=== PATIENT | male | born 1950 | race Caucasian/White ===

== ENCOUNTER → 2017-06-12 | Outpatient (CLI) | payer MEDICARE | END | disposition home or self-care (01) | LOC: LABPAT 11:12 | PROVIDERS: ATTEND Orthopaedic Surgery | DX: Z01.812 Encounter for preprocedural laboratory examination (principal); M16.12 Unilateral primary osteoarthritis, left hip | CPT/HCPCS: 87070 ==

== ENCOUNTER → 2017-06-16 | Outpatient (CLI) | payer MEDICARE ==
[2017-06-16 10:26] LABS: Basophils # (A) 0.1 k/uL (0-0.2); Basophils % (A) 1 %; Eosinophils # (A) 0.3 k/uL (0-0.7); Eosinophils % (A) 4 %; HCT 48.5 % (39.0-53.0); HGB 15.7 gm/dL (13.0-17.5); Lymphocytes # (A) 2.1 k/uL (1.0-4.8); Lymphocytes % (A) 26 %; MCHC 32.4 g/dL (31.0-37.0); MCV 89.5 fL (80.0-100.0); Mean Platelet Volume 7.9; Monocytes # (A) 0.5 k/uL (0-1.0); Monocytes % (A) 6 %; Neutrophils # (A) 4.8 k/uL (1.3-7.7); Neutrophils % (A) 61 %; Platelet Count 262 k/uL (150-450); RBC 5.42 m/uL (4.30-5.90); RDW 13.4 % (11.5-15.5); WBC 7.9 k/uL (3.8-10.6)
[2017-06-16 10:28] LABS: Partial Thromboplastin Time 23.6 sec (22.0-30.0); Prothrombin Time 10.2 sec (9.0-12.0)
[2017-06-16 11:10] LABS: Potassium 3.9 mmol/L (3.5-5.1)
== END | disposition home or self-care (01) ==
LOC: LABPAT 09:40
PROVIDERS: ATTEND Orthopaedic Surgery
DX: Z01.812 Encounter for preprocedural laboratory examination (principal); M16.12 Unilateral primary osteoarthritis, left hip; Z79.01 Long term (current) use of anticoagulants; Z51.81 Encounter for therapeutic drug level monitoring
CPT/HCPCS: 36415; 80051; 85025; 85610; 85730

== ENCOUNTER 2017-06-23 05:37 | Inpatient (IN) | payer MEDICARE, OTHER ==
[2017-06-13 14:23] VITALS: BMI 24.8
--- NOTE | 2017-06-22 09:36 | HP ---
HISTORY AND PHYSICAL HISTORY: Randy Higuera is a 66-year-old patient seen with symptomatic left hip osteoarthritis. After treatment options were discussed, he elected to proceed with direct anterior left total hip arthroplasty. Consent regarding the procedure was obtained. Medical clearance was provided by Dr. Randy Deng. PAST MEDICAL HISTORY: Hypertension, hypothyroidism, hyperlipidemia. PAST SURGICAL HISTORY: Noncontributory. MEDICATIONS: Amlodipine, levothyroxine, pravastatin. ALLERGIES: None reported. SOCIAL HISTORY: Patient denies tobacco use. PHYSICAL EXAMINATION: Left hip, there is limited range of motion with severe pain. Diffuse tenderness about the hip girdle. Positive hip impingement sign. Straight leg raise is negative. Left lower extremity approximately one-half inch shorter than the right. Distal neurovascular exam is intact. RADIOGRAPHS: Radiographs of the left hip reveal severe osteoarthritic changes. IMPRESSION: 1. Left hip osteoarthritis. 2. Hypothyroidism. 3. Hyperlipidemia. 4. Hypertension. PLAN: Direct anterior left total hip arthroplasty. MMODL / IJN: [id number] /
[~2017-06-23 05:37] MED LIST: ACETAMINOPHEN TAB 500 MG TAB PO ONE; DEXAMETHASONE SOD PHOSPHATE 10 MG/ML 1 ML VIAL IV ONE; MELOXICAM 7.5 MG TAB PO ONE; MIDAZOLAM 2 MG/2 ML VIAL IV PRN; ONDANSETRON 4 MG/2 ML VIAL IVP ONE; TRANEXAMIC ACID 1,000 MG in SODIUM CHLORIDE 0.9% 50 ML IVPB ONE; ceFAZolin IN SWFI 2 GM/20 ML SYRINGE IVP ONE; fentaNYL (PF) 50 MCG/ML 2 ML AMP IV PRN
[2017-06-23] MEDS ORDERED: LIDOCAINE 1% 20 ML VIAL (10MG/ML) FOR IV START INTRADERMA ONE (06:44)
[2017-06-23] MEDS: LACTATED RINGERS 1,000 ML IV SCH ×3 (07:05→21:05)
[2017-06-23] MEDS ORDERED: ROPIVACAINE 246.25 MG, EPINEPHrine 0.5 MG, KETOROLAC 30 MG, cloNIDine HCL/PF 80 MCG, WA... MISCELLANE ONE ×5 (07:26)
[2017-06-23] MEDS ORDERED: diphenhydrAMINE 50 MG/ML 1 ML VIAL ONE (07:27)
[2017-06-23] MEDS ORDERED: SODIUM CHLORIDE 0.9% 100 ML BAG ONE (07:27)
[2017-06-23] MEDS ORDERED: fentaNYL (PF) 50 MCG/ML 2 ML AMP ONE (07:27)
[2017-06-23] MEDS ORDERED: MIDAZOLAM 2 MG/2 ML VIAL ONE (07:27)
[2017-06-23] MEDS ORDERED: LIDOCAINE 1% INJ 10MG/ML (20 ML MDV) ONE (07:27)
[2017-06-23] MEDS ORDERED: TRANEXAMIC ACID 1,000 MG/10 ML VIAL ONE (07:27)
[2017-06-23] MEDS ORDERED: PROPOFOL 10 MG/ML 20 ML VIAL IV ONE (07:27)
[2017-06-23] MEDS ORDERED: ceFAZolin 3,000 MG in SODIUM CHLORIDE 0.9% IRRIGATIO 3,000 ML IRRIGATION ONE (08:06)
[2017-06-23] MEDS ORDERED: LACTATED RINGERS 1,000 ML IV ONE (09:28)
[2017-06-23] MEDS ORDERED: MORPHINE SULFATE/PF 10MG/10ML VL IVP PRN ×3 (09:38)
[2017-06-23] MEDS ORDERED: HYDROcodone/APAP 7.5-325MG 1 EACH TAB PO PRN ×2 (09:38)
[2017-06-23] MEDS ORDERED: ONDANSETRON 4 MG/2 ML VIAL IVP PRN (09:38)
[2017-06-23] MEDS ORDERED: NALOXONE 0.4 MG/ML 1 ML VIAL IV PRN (09:38)
[2017-06-23] MEDS ORDERED: hydrOXYzine PAMOATE 25 MG CAP PO PRN (09:38)
--- NOTE | 2017-06-23 09:38 | P.OP ---
Date of Procedure: 06/23/17 Preoperative Diagnosis: Left hip osteoarthritis Postoperative Diagnosis: Left hip osteoarthritis Procedure(s) Performed: Direct anterior left total hip arthroplasty Implants: 1. Depuy Corail KA size 15 standard collar. The femoral stem 2. Depuy pinnacle 62 mm multi hole press-fit acetabular shell 3. Depuy pinnacle polyethylene acetabular liner neutral 36 mm ID 62 mm OD 4. Biolox delta ceramic femoral head +5 36 mm Anesthesia: local, spinal Surgeon: Roberto Alanis Automotive Engineering Technician #1: Carlos Will Estimated Blood Loss (ml): 200 Pathology: other (Femoral head) Condition: stable Disposition: PACU Indications for Procedure: 66-year-old patient seen with symptomatic left hip osteoarthritis. After treatment options were discussed, he elected to proceed with total hip arthroplasty. Operative Findings: See description of procedure Description of Procedure: The patient was taken to the operative suite. Patient underwent a spinal anesthetic by the department of anesthesia. Patient was then transferred to the [place] table. Patient was given preoperative IV antibiotics and TXA. Both lower extremities were placed in standard leg spars. The hip was then prepped and draped in the normal sterile orthopedic fashion. A standard anterior incision was made beginning 3 cm lateral and 1 cm distal to the ASIS extending 10 cm. Dissection was then carried down through the subcutaneous soft tissues down to the fascia overlying the tensor fascia guero. An incision was now made through the fascia. Careful dissection was taken down exposing the tensor fascia geuro muscle. A Cobra retractor was now placed along the medial femoral neck and a second one along the lateral femoral neck. The venous circumflex vessels were now identified, cauterized and clipped. We identified the anterior hip capsule. An incision was made through the hip capsule along the lateral border. Tag sutures were then placed along the anterior capsule and lateral capsule. We then performed a capsulotomy. Retractors were now placed around the femoral neck itself. A Cobra retractor was now placed along the anterior acetabulum. Good exposure was now noted of the femoral head/neck complex. Residual labrum was debrided out. We placed the extremity into 3 turns of fine traction. We were then able to introduce a skid in between the femoral head and acetabulum. A placed a awl into the femoral head. We took 2 turns of traction off the extremity. Rotation was now released. The femoral head was then dislocated without difficulty. Additional releasing was performed of the capsule. The head was then reduced. All traction was released. A femoral neck cut was now made with a sagittal saw. It was completed with an osteotome at the lateral neck area. The femoral head was now removed without difficulty. It was advanced arthritis noted of both the femoral head and acetabulum. Obvious deficiency along the anterior portion of the acetabulum. The extremity was now rotated to 60 of external rotation. It was locked in position. Residual labrum was now debrided out. Serial reaming was performed of the acetabulum. Once we reached the appropriate size and a trial was position and fit nicely. The appropriate size was now chosen opened and made available. It was introduced into the acetabulum without difficulty. I noted that the cup was not stable and would not stick with the anterior deficiency. I now reamed with a 60 reamer. I chose a new 62 mm multi hole press-fit shell introduced into the acetabulum. The C-arm/fluoroscopy was now brought into the operative field. We made sure we had a true AP pelvic view. We now under direct C-arm/fluoroscopy introduced into the acetabular component with appropriate version and inclination. The C-arm was pulled back. An appropriate liner was introduced and clicked into position. It was felt to be stable. I did put 2 screws to help make sure we had a stable fixation with this anterior deficiency. At this point retractors were removed. The extremity was now placed into 120 external rotation with no traction. The leg was now dropped to the ground and adducted. Appropriate retractors were now positioned along the proximal femur. We also placed our femoral look into position. Additional capsular releasing was performed to gain access to the proximal femur. We now used a box osteotome. A canal finder was now utilized. Serial broaching was now performed until we reached the appropriate size with good overall rotational stability. Appropriate calcar planing was performed. A trial head/neck was placed into position. The hip was now reduced. The C-arm /fluoroscopy was brought back into the operative field. A spot film was obtained of the nonoperative hip. A spot film was obtained of the trial components. Overlays were performed, we noted good overall alignment and positioning for determining leg length. The C-arm/fluoroscopy was pulled back. Retractors were repositioned and the hip was dislocated. The leg was again taken down to the ground and adducted. Appropriate retractors were repositioned as well as the femoral hook. All trial components were removed. The femoral implant was opened along with the femoral head. The femoral implant was introduced with good purchase and fixation noted. The femoral head was introduced with good positioning and fixation noted. Retractors were now removed. The hip was now reduced. There appeared be good positioning of the hip. Was confirmed under fluoroscopy and spot films were obtained to document that. A second gram of TXA was given. Wound irrigated with pulse lavage mechanical irrigation. The soft tissues were infiltrated local analgesic. Bipolar cautery had been utilized intermittently through the procedure for hemostasis. The wound was irrigated copiously with pulse lavage mechanical irrigation. The fascia was repaired with Vicryl suture. The subcutaneous soft tissues were repaired in layers with Vicryl suture. The skin was approximated with pernio/Dermabond. Sterile dressings were applied. Patient was then awakened, transferred to a bed and taken to recovery in stable condition. Valentin MIX assisted with the procedure.
--- NOTE | 2017-06-23 10:06 | FL ---
Fluoroscopy HISTORY: Anterior hip replacement 37 seconds fluoroscopy time supplied to the referring clinician. 1 intraoperative C-arm image docume nts the procedure. See dictated report from orthopedic surgery.
--- NOTE | 2017-06-23 10:07 | XR ---
Limited left hip HISTORY: Hip replacement Intraoperative C-arm image documents the procedure
[2017-06-23] MEDS: traMADol 50 MG TAB PO SCH ×3 (13:01→21:04)
[2017-06-23] MEDS: ceFAZolin IN SWFI 2 GM/20 ML SYRINGE IVP SCH ×2 (15:29→23:13)
[2017-06-23] MEDS ORDERED: PRAVASTATIN SODIUM 40 MG TAB PO SCH (21:00)
[2017-06-23] MEDS ORDERED: SENNOSIDES-DOCUSATE SODIUM 1 EACH TAB PO SCH (21:00)
[2017-06-24] MEDS ORDERED: LEVOTHYROXINE 50 MCG TAB PO SCH (06:30)
[2017-06-24] MEDS: LACTATED RINGERS 1,000 ML IV SCH ×2 (06:50→09:14)
[2017-06-24 07:57] VITALS: PULSE 71; RESP 16
[2017-06-24 08:00] LABS: Basophils % (A) 0 %; Eosinophils # (A) 0.1 k/uL (0-0.7); Eosinophils % (A) 0 %; HCT 36.4 % (39.0-53.0); Lymphocytes # (A) 1.5 k/uL (1.0-4.8); Lymphocytes % (A) 10 %; MCH 30.3 pg (25.0-35.0); MCHC 34.5 g/dL (31.0-37.0); MCV 87.8 fL (80.0-100.0); Mean Platelet Volume 7.6; Monocytes # (A) 0.9 k/uL (0-1.0); Monocytes % (A) 6 %; Neutrophils # (A) 12.1 k/uL (1.3-7.7); Neutrophils % (A) 82 %; Platelet Count 238 k/uL (150-450); RBC 4.15 m/uL (4.30-5.90); RDW 13.2 % (11.5-15.5); WBC 14.8 k/uL (3.8-10.6)
[2017-06-24 08:08] LABS: HGB 12.6 gm/dL (13.0-17.5)
[2017-06-24] MEDS: traMADol 50 MG TAB PO SCH ×2 (08:42→12:10)
[2017-06-24] MEDS ORDERED: MELOXICAM 7.5 MG TAB PO SCH (09:00)
[2017-06-24] MEDS ORDERED: ENOXAPARIN 40 MG/0.4 ML SYRINGE SQ SCH (09:00)
[2017-06-24] MEDS ORDERED: FAMOTIDINE 20 MG TAB PO SCH (09:00)
--- NOTE | 2017-06-24 10:27 | P.CONS ---
History of Present Illness - Reason for Consult Consult date: 06/24/17 Medical management - Chief Complaint s/p left total hip arthroplasty - History of Present Illness 66-year-old male who underwent elective left total hip arthroplasty with Dr. Alanis on 06/23/2017. The patient is a history of osteoarthritis, hypertension, hyperlipidemia, and hypothyroidism. Dr. Deng was consulted for medical management. The patient was seen and examined at the bedside. Patient denies shortness of breath or coughing. Patient states his pain is tolerable at this time. Denies chest pain or pressure. Patient is tolerating a regular diet without nausea or vomiting. Vital signs have remained stable. Patient is afebrile. Patient denies any concerns or complaints at this time. Review of Systems GENERAL: Patient denies fever. Denies chills. EYES: Denies blurred vision. Denies vision changes. Denies eye pain. EARS, NOSE, MOUTH, & THROAT: Denies headache. Denies sore throat. Denies ear pain. RESPIRATORY: Denies cough. Denies shortness of breath. Denies sputum production. Denies hemoptysis. CARDIOVASCULAR: Denies chest pain or pressure. Denies palpitations. Denies arrhythmias. GASTROINTESTINAL: Denies abdominal pain. Denies diarrhea. Denies constipation. Denies nausea. Denies vomiting. Denies heartburn. Denies blood in the stool. GENITOURINARY: Denies urinary frequency. Denies burning. Denies dysuria. Denies cloudy urine. Denies blood in the urine. MUSCULOSKELETAL: Positive for left hip pain secondary to osteoarthritis. Positive for mild surgical pain this morning. INTEGUMENTARY: Denies pruitis. Denies rash. PSYCHIATRIC: Denies suicidal or homicial ideations. ENDOCRINE: Denies weight change. Denies polydipsia. Denies polyuria. HEMATOLOGIC: Denies bleeding disorders. Past Medical History Past Medical History: Hearing Disorder / Deafness, Hyperlipidemia, Hypertension , Thyroid Disorder Additional Past Medical History / Comment(s): [place], ringing in ears. History of Any Multi-Drug Resistant Organisms: None Reported Past Surgical History: Hernia Repair Additional Past Surgical History / Comment(s): Colonosopy Past Anesthesia/Blood Transfusion Reactions: No Reported Reaction Past Psychological History: No Psychological Hx Reported Smoking Status: Former smoker Past Alcohol Use History: Rare Additional Past Alcohol Use History / Comment(s): Smoked from [id number]. Past Drug Use History: None Reported - Past Family History Father Additional Family Medical History / Comment(s): Liver disorder Medications and Allergies Home Medications Medication Instructions Recorded Confirmed Type Garlic 1 tab PO DAILY 06/13/17 06/23/17 History Levothyroxine Sodium [Synthroid] 50 mcg PO QAM 06/13/17 06/23/17 History [place]-3 Fatty Acids [[place]-3] 1,000 mg PO DAILY 06/13/17 06/23/17 History Pravastatin Sodium 40 mg PO HS 06/13/17 06/23/17 History amLODIPine [Norvasc] 5 mg PO DAILY@1200 06/13/17 06/23/17 History Allergies Allergy/AdvReac Type Severity Reaction Status Date / Time No Known Allergies Allergy Verified 06/23/17 11:15 Physical Exam Vitals: Vital Signs Temp Pulse Pulse Pulse Resp BP Pulse Ox 06/24/17 07:00 98.2 F 71 16 121/67 96 06/24/17 01:06 97.9 F 65 17 106/62 96 06/23/17 20:00 97.7 F 73 18 106/55 96 06/23/17 15:00 97.7 F 71 16 111/58 96 06/23/17 12:45 62 125/66 95 06/23/17 12:30 60 122/68 90 L 06/23/17 12:15 57 L 126/73 94 L 06/23/17 12:00 60 121/74 94 L 06/23/17 11:45 56 L 127/70 90 L 06/23/17 11:30 55 L 126/73 94 L 06/23/17 11:15 56 L 121/74 94 L 06/23/17 11:00 56 L 122/70 90 L 06/23/17 10:45 98.1 F 58 L 16 120/71 95 06/23/17 10:31 47 L 18 130/62 96 Intake and Output 06/23/17 06/24/17 06/24/17 22:59 06:59 14:59 Intake Total 280 990 Output Total 1000 Balance -720 990 Intake: IV 640 Lactated Ringers 1,000 ml 640 @ 80 mls/hr IV .[id number] [facility] Rx#:[id number] Intake, IV Titration 280 Amount Lactated Ringers 1,000 ml 280 @ 80 mls/hr IV .[id number] [facility] Rx#:[id number] Oral 350 Output: Urine 1000 Other: Voiding Method Urinal Toilet # Voids 1 2 GENERAL: This is a 66-year-old male in no apparent distress at the time of examination. Pleasant and cooperative. HEENT: Head is atraumatic, normocephalic. Pupils are equal, round, and reactive to light. Sclerae anicteric. Conjunctivae are clear. Mucus membranes of the mouth are moist. Neck is supple. RESPIRATORY: Clear to ausculation. No wheezes, rales, or rhonchi. No use of accessory muscles. Patient maintaining oxygen saturation greater than 92%. No chest wall tenderness is noted on palpation or with deep breathing. CARDIOVASCULAR: Regular rate and rhythm. S1 and S2 noted. No systolic or diastolic murmur auscultated. No JVD noted. No S3 or S4 noted. GASTROINTESTINAL: No distention noted. Abdomen soft and round. Normal active bowel sounds auscultated x 4 quadrants. No pain or tenderness noted upon palpation. INTEGUMENTARY: Left hip surgical site clean dry and intact. No drainage noted. No cyanosis. No jaundice. No rashes noted. No cellulitis noted. EXTREMITIES: 2+ peripheral pulses. No evidence of peripheral edema. No calf tenderness noted. NEUROLOGIC: Cranial nerves II-XII intact. PSYCHIATRIC: Awake, alert, and oriented X 3. Appropriate affect. Intact judgement and insight. Results CBC & Chem 7: 06/24/17 06:25 Labs: Abnormal Lab Results - Last 24 Hours (Table) 06/24/17 Range/Units 06:25 WBC 14.8 H (3.8-10.6) k/uL RBC 4.15 L (4.30-5.90) m/uL Hgb 12.6 L D (13.0-17.5) gm/dL Hct 36.4 L (39.0-53.0) % Neutrophils # 12.1 H (1.3-7.7) k/uL Assessment and Plan Plan: ASSESSMENT: Osteoarthritis, s/p left total hip arthroplasty, POD #1 Essential hypertension Hyperlipidemia Hypothyroidism Nicotine dependence, in remission, patient is a former cigarette smoker and quit smoking in 1978 PLAN: Continue postoperative care per Dr. Alanis Activity as tolerated Pain control Incentive spirometer 10 times an hour while awake PT/OT Home meds as appropriate Monitor labs GI/DVT prophylaxis Monitor vital signs and address as appropriate Further recommendations pending patient's course Patient is cleared for discharge from medical standpoint per Dr. Deng when cleared by admitting physician Nurse practitioner note has been reviewed by physician. Signing provider agrees with the documented findings, assessment, and plan of care.
[2017-06-24] MEDS ORDERED: HYDROmorphone 2 MG TAB PO PRN ×3 (11:20→11:22)
--- NOTE | 2017-06-24 11:32 | P.PN ---
Subjective Progress Note Date: 06/24/17 Principal diagnosis: Status post left total hip arthroplasty Patient seen today resting in his hospital bed, he appears comfortable. He's ambulate well with therapy. He is urinating on his own. He denies any headaches, lightheadedness, chest pain or shortness of breath. Objective - Vital Signs Vital signs: Vital Signs Temp 98.2 F 06/24/17 07:00 Pulse 71 06/24/17 07:00 Resp 16 06/24/17 07:00 BP 121/67 06/24/17 07:00 Pulse Ox 96 06/24/17 07:00 Intake & Output 06/23/17 06/24/17 06/24/17 18:59 06:59 18:59 Intake Total 1701 1270 Output Total 1200 Balance 501 1270 Weight 80.739 kg Intake: IV 1701 640 Lactated Ringers 1,000 ml 400 640 @ 80 mls/hr IV .[id number] [facility] Rx#:[id number] Intake, IV Titration 280 Amount Lactated Ringers 1,000 ml 280 @ 80 mls/hr IV .[id number] [facility] Rx#:[id number] Oral 350 Output: Urine 1000 Estimated Blood Loss 200 Other: Voiding Method Urinal Toilet # Voids 1 2 - Exam Left lower extremity: Incision is clean, dry, and intact. The prineo tape is in good condition. There is minimal soft tissue swelling and ecchymosis surrounding the medial and lateral aspects of the incision. Calf is soft, no tenderness with palpation. Plantar flexion, dorsiflexion, EHL, FHL are intact. Sensory exam to light touch throughout the extremity is intact, dorsal pedis pulses 2+. - Labs CBC & Chem 7: 06/24/17 06:25 Labs: Abnormal Lab Results - Last 24 Hours (Table) 06/24/17 Range/Units 06:25 WBC 14.8 H (3.8-10.6) k/uL RBC 4.15 L (4.30-5.90) m/uL Hgb 12.6 L D (13.0-17.5) gm/dL Hct 36.4 L (39.0-53.0) % Neutrophils # 12.1 H (1.3-7.7) k/uL Assessment and Plan Plan: Assessment: 1. Postop day #1 status post left total hip arthroplasty Plan: 1. Pain control, we'll discharge home on oral medication 2. GI and DVT prophylaxis, we'll discharge home on aspirin 325 mg twice a day 3. Wound care instructions discussed 4. Home therapy and nursing after discharge 5. Medical recommendations 6. Discharge planning: Patient will be discharged home today Time with Patient: Less than 30
--- NOTE | 2017-06-24 11:34 | P.DS ---
Providers Date of admission: 06/23/17 05:37 Expected date of discharge: 06/24/17 Attending physician: Roberto Alanis Consults: 06/23/17 09:38 Consult Physician Routine Consulting Provider: Randy Deng Reason/Comments: Medical management Do you want consulting provider notified?: Yes Primary care physician: Randy Deng [facility] Course: Date of admission: 06/23/2017 Date of discharge: 06/24/2017 Admission diagnosis: Status post left total hip arthroplasty Discharge diagnosis: Same Attending physician: Dr. Alanis Surgical procedures: Left total hip arthroplasty Brief history: Patient is a 66-year-old male with a history of progressive primary left hip osteoarthritis. At this point patient has failed conservative treatment measures and has opted to proceed with a elective left total hip arthroplasty. Hospital course: Details of patient's surgery can be found in operative report. Patient tolerated the procedure well and was subsequently transported to orthopedic floor. Patient's orthopeidc and medical care was provided daily. Patient had daily laboratory tests performed for evaluation of overall blood counts. Patient had daily physical therapy to include strengthening range of motion as well as education with walker ambulation. nPatient was treated with Lovenox for their postoperative DVT prophylaxis during their inpatient stay. Patient was noted to have a relatively uneventful postoperative course. Patient reported satisfactory pain control with oral pain medications by postoperative day 0. Patient showed satisfactory progress with physical therapy. Patient moved steadily through the program and had no difficulty meeting the goals by postoperative day 1. Given patient's otherwise satisfactory course and having met physical therapy goals, plan is to discharge patient home on postoperative day 1. Discharge condition/disposition: Patient will be discharged home in stable condition. Discharge medications: Instructions are given on resumption of patient's normal daily medications per primary care recommendation, in addition patient will be prescribed [place] 5 mg/325 mg, tramadol 50 mg, Colace 100 mg, Pepcid 20 mg, aspirin 325 mg. Discharge instructions: 1. Wound care and infection precautions, keep incision dry and covered while showering, no lotions, creams, moisturizers. No soaking, tubs, pools, hottubs. Do not scrub over the incision. 2. Weight-bear as tolerated with walker / cane until follow-up. 3. Ice and elevate when necessary. Do not exceed 20 minutes per hour with ice pack. 4. Utilize compression sleeve until seen at first follow up appointment. 5. Visiting nursing care. 6. Home physical therapy. 7. Pain meds and anticoagulants per prescription. 8. Pain medication has potential to cause constipation. Increase oral fluid and fiber intake. Contact primary care provider if you have not had a bowel movement within 48 hours after discharge 9. No anti-inflammatory medication until discussed at first post operative visit, this including Motrin, Aleve, Mobic, Diclofenac. 10. Follow up in office at 2 weeks postop with Valentin Will PA-C 11. Follow up with your primary care doctor 7-10 days after discharge. 12. Contact [facility] with any questions, . Procedures: Left total hip arthroplasty Patient Condition at Discharge: Good Plan - Discharge Summary Discharge Rx Participant: No New Discharge Prescriptions: New Aspirin 325 mg PO BID #60 tab Docusate [Colace] 100 mg PO DAILY #30 capsule Famotidine [Pepcid] 20 mg PO DAILY #30 tablet Hydrocodone/Acetaminophen [[place] 5-325] 1 each PO Q6HR PRN #30 tab PRN Reason: Pain traMADol HCl [Ultram] 50 mg PO Q6H PRN #30 tab PRN Reason: Pain No Action amLODIPine [Norvasc] 5 mg PO DAILY@1200 Pravastatin Sodium 40 mg PO HS Levothyroxine Sodium [Synthroid] 50 mcg PO QAM [place]-3 Fatty Acids [[place]-3] 1,000 mg PO DAILY Garlic 1 tab PO DAILY Discharge Medication List Garlic 1 tab PO DAILY 06/13/17 [History] Levothyroxine Sodium [Synthroid] 50 mcg PO QAM 06/13/17 [History] [place]-3 Fatty Acids [[place]-3] 1,000 mg PO DAILY 06/13/17 [History] Pravastatin Sodium 40 mg PO HS 06/13/17 [History] amLODIPine [Norvasc] 5 mg PO DAILY@1200 06/13/17 [History] Aspirin 325 mg PO BID #60 tab 06/24/17 [Rx] Docusate [Colace] 100 mg PO DAILY #30 capsule 06/24/17 [Rx] Famotidine [Pepcid] 20 mg PO DAILY #30 tablet 06/24/17 [Rx] Hydrocodone/Acetaminophen [[place] 5-325] 1 each PO Q6HR PRN #30 tab 06/24/17 [Rx] traMADol HCl [Ultram] 50 mg PO Q6H PRN #30 tab 06/24/17 [Rx] Follow up Appointment(s)/Referral(s): [facility], [NON-STAFF] - Carlos Will, YOLIE [PHYSICIAN PHYSICAL GEOGRAPHER] - 2 Weeks Activity/Diet/Wound Care/Special Instructions: Orthopedic Discharge Instructions: 1. Wound care and infection precautions, keep incision dry and covered while showering, no lotions, creams, moisturizers. No soaking, pools, hot tubs. Do not scrub over incision. 2. Weight-bear as tolerated with walker / cane until follow-up. 3. Ice and elevate when necessary. Do not exceed 20 minutes per hour with ice pack. 4. Utilize compression sleeve until seen at first follow up appointment. 5. Visiting nursing care. 6. Home physical therapy. 7. Pain meds and anticoagulants per prescription. 8. Pain medication has potential to cause constipation. Increase oral fluid and fiber intake. Contact primary care provider if you have not had a bowel movement within 48 hours after discharge. 9. No anti-inflammatory medication until discussed at first post operative visit, this including Motrin, Aleve, Mobic, Diclofenac. 10. Follow up in office at 2 weeks postop with Valentin Will PA-C 11. Follow up with your primary care doctor 7-10 days after discharge. 12. Contact [facility] with any questions, . Discharge Disposition: HOME WITH HOME HEALTH SERVICES
[2017-06-24 11:53] VITALS: BP 128/68; TEMP 98.9
[2017-06-24] MEDS ORDERED: amLODIPine 5 MG TAB PO SCH (12:00)
== END 2017-06-24 13:40 | disposition home health service (06) | DRG 470 ==
LOC: 2ORMAIN 05:37 → 3SUR 09:57
PROVIDERS: ADMIT Orthopaedic Surgery; ATTEND Orthopaedic Surgery
PROC: 0SRB04A Replacement of Left Hip Joint with Ceramic on Polyethylene Synthetic Substitute, Uncemented, Open Approach (ICD-10-PCS; principal; 2017-06-23 07:30)
DX: M16.12 Unilateral primary osteoarthritis, left hip (principal); E03.9 Hypothyroidism, unspecified; E78.5 Hyperlipidemia, unspecified; F17.201 Nicotine dependence, unspecified, in remission; H91.90 Unspecified hearing loss, unspecified ear; I10 Essential (primary) hypertension; Z79.899 Other long term (current) drug therapy
CPT/HCPCS: 36415; 73501; 85025; 86850; 86900; 86901; 88300

== ENCOUNTER → 2020-09-01 | Outpatient (CLI) | payer MEDICARE, OTHER ==
--- NOTE | 2020-09-01 12:01 | XR ---
EXAMINATION TYPE: XR mandible complete DATE OF EXAM: 09/01/2020 COMPARISON: NONE HISTORY: Mandibular pain TECHNIQUE: 5 views of the mandible are submitted. FINDINGS: No evidence for fracture or bony lesion. TMJs are intact. IMPRESSION: Unremarkable study
== END | disposition home or self-care (01) ==
LOC: RADXRMAIN 09:54
PROVIDERS: ATTEND Family Medicine
DX: R68.84 Jaw pain (principal)
CPT/HCPCS: 70110

== ENCOUNTER → 2023-02-10 | Day surgery (SDC) | payer MEDICARE, OTHER ==
[2023-02-07 08:42] VITALS: BMI 24.5
[~2023-02-10] MED LIST changes: -ACETAMINOPHEN TAB 500 MG TAB PO ONE; -DEXAMETHASONE SOD PHOSPHATE 10 MG/ML 1 ML VIAL IV ONE; +LACTATED RINGERS 1,000 ML IV SCH; +LIDOCAINE 1% (10MG/ML) FOR IV START INTRADERMA ONE; -MELOXICAM 7.5 MG TAB PO ONE; -MIDAZOLAM 2 MG/2 ML VIAL IV PRN; -ONDANSETRON 4 MG/2 ML VIAL IVP ONE; +PROPOFOL 10 MG/ML 20 ML VIAL IV ONE; -TRANEXAMIC ACID 1,000 MG in SODIUM CHLORIDE 0.9% 50 ML IVPB ONE; -ceFAZolin IN SWFI 2 GM/20 ML SYRINGE IVP ONE; -fentaNYL (PF) 50 MCG/ML 2 ML AMP IV PRN
[2023-02-10 12:30] VITALS: PULSE 60; RESP 16; TEMP 97.4
--- NOTE | 2023-02-10 13:08 | P.GSHP ---
History of Present Illness H&P Date: 02/10/23 Chief Complaint: Screening colonoscopy This a 72-year-old male presents today for screening colonoscopy. Patient denies a significant GI complaints. Past Medical History Past Medical History: Hearing Disorder / Deafness, Hyperlipidemia, Hypertension, Thyroid Disorder Additional Past Medical History / Comment(s): MENOMINEE, ringing in ears. History of Any Multi-Drug Resistant Organisms: None Reported Past Surgical History: Hernia Repair, Orthopedic Surgery Additional Past Surgical History / Comment(s): Colonosopy left hip replaced in 1 996 Past Anesthesia/Blood Transfusion Reactions: No Reported Reaction Additional Past Anesthesia/Blood Transfusion Reaction / Comment(s): no blood tra nsfusion Smoking Status: Former smoker - Past Family History Father Additional Family Medical History / Comment(s): Liver disorder Medications and Allergies Home Medications Medication Instructions Recorded Confirmed Type Levothyroxine Sodium [Synthroid] 50 mcg PO QAM 06/13/17 02/07/23 History Pravastatin Sodium 40 mg PO HS 06/13/17 02/07/23 History amLODIPine [Norvasc] 5 mg PO DAILY@1200 06/13/17 02/07/23 History Allergies Allergy/AdvReac Type Severity Reaction Status Date / Time No Known Allergies Allergy Verified 02/10/23 12:16 Surgical - Exam Vital Signs Temp Pulse Resp BP Pulse Ox 97.4 F L 60 16 172/79 97 02/10/23 12:19 02/10/23 12:19 02/10/23 12:19 02/10/23 12:19 02/10/23 12:19 - General well developed, well nourished, no distress - Eyes PERRL - ENT normal pinna, normal nares - Neck no masses - Respiratory normal expansion - Cardiovascular Rhythm: regular - Abdomen Abdomen: soft, non tender Assessment and Plan Assessment: We'll perform screening colonoscopy
--- NOTE | 2023-02-10 13:22 | P.OP ---
Date of Procedure: 02/10/23 Preoperative Diagnosis: Screening colonoscopy Postoperative Diagnosis: Diverticulosis Procedure(s) Performed: Colonoscopy Anesthesia: MAC Surgeon: Emanuel Champion Pathology: none sent Condition: stable Disposition: PACU Description of Procedure: The patient's placed on the endoscopy table in the lateral position. He received IV sedation. Digital rectal exam was performed. This revealed no abnormalities. Flexible colonoscope was then placed patient anus and passed throughout the entire colon. Ileocecal valve was visually is. The cecum, ascending and transverse colon appeared normal. In the descending and; there is extensive diverticular changes. The scope was then brought back the rectum and this appeared normal. Scope withdrawn for patient.
[2023-02-10 13:43] VITALS: BP 113/55
== END ==
LOC: ORWHC2ENDO 11:53
PROVIDERS: ATTEND Surgery
DX: Z12.11 Encounter for screening for malignant neoplasm of colon (principal); I10 Essential (primary) hypertension; E78.5 Hyperlipidemia, unspecified; H91.90 Unspecified hearing loss, unspecified ear; F32.A Depression, unspecified; E07.9 Disorder of thyroid, unspecified; Z98.890 Other specified postprocedural states; Z87.891 Personal history of nicotine dependence; Z79.890 Hormone replacement therapy; Z79.83 Long term (current) use of bisphosphonates; Z79.899 Other long term (current) drug therapy
CPT/HCPCS: J2704; G0121

== ENCOUNTER → 2023-06-11 | Outpatient (CLI) | payer MEDICARE ==
[2023-06-11 13:38] LABS: African American GFR (CKD) >90 (>60 ml/min/1.73 sqM); Blood Urea Nitrogen 18 mg/dL (9-20); Non-African American GFR(CKD) 83 (>60 ml/min/1.73 sqM)
--- NOTE | 2023-06-11 14:27 | CT ---
EXAMINATION: CT UROGRAM WITHOUT AND WITH IV CONTRAST DATE OF EXAMINATION: 06/11/2023. COMPARISON: None available. INDICATION: Hematuria and right-sided pain. PROCEDURE: Axial CT of the abdomen and pelvis was performed with contrast and sagittal and coronal reformatted images were performed. CT dose lowering techniques were used, to include: automated expos ure control, adjustment for patient size, and/or use of iterative reconstruction. 100 mL of Isovue-37 0 was given intravenously. FINDINGS: LOWER CHEST : The visualized lung bases are clear. There are no pleural or pericardial effusions. ABDOMEN: Liver and Biliary system: Normal. Adrenal glands: Normal. Kidneys and ureters: Normal. Spleen: Normal. Pancreas: Normal. Gallbladder: Numerous gallstones are seen within the gallbladder.. Lymph nodes, Peritoneum and mesentery: There is no mesenteric or retroperitoneal lymphadenopathy. Gastrointestinal tract: There are no dilated loops of bowel or free intraperitoneal air. The appe ndix is normal. There is mild sigmoid colonic diverticulosis without evidence of diverticulitis. Aorta/IVC: There is mild vascular calcification throughout the abdominal aorta without evidence of aneurysmal dilation or dissection. IVC normal. Abdominal wall: Normal. PELVIS: Fluid: There is no free fluid in the pelvis. Lymph Nodes: There is no pelvic or inguinal lymphadenopathy.. Urinary bladder: Mild diffuse thickening of the bladder wall is of indeterminate significance. There also appears to be a small intraluminal nodule along the anterior wall of the bladder measuring appr oximately 6 mm in diameter as malignancy would be in the differential diagnosis. Urology consult and cystoscopy is recommended for further evaluation. BONES: There is a left total hip arthroplasty. Moderate to significant degenerative joint space narr owing is also seen within the right hip joint space. There are no acute osseous abnormalities. Degene rative disc space narrowing is seen at L5-S1.. ADDITIONAL SIGNIFICANT FINDINGS: None. IMPRESSION: 1. Mild diffuse thickening of the bladder wall is of indeterminate significance. There also appears t o be a small intraluminal nodule along the anterior wall of the bladder measuring approximately 6 mm in diameter as malignancy would be in the differential diagnosis. Urology consult and cystoscopy is r ecommended for further evaluation. 2. Diverticulosis without evidence of diverticulitis. 3. Cholelithiasis. 4. No renal stones or hydronephrosis. 5. No suspicious renal lesions otherwise seen.
== END | disposition home or self-care (01) ==
LOC: RADCTMAIN 12:36
PROVIDERS: ATTEND Urology
DX: K80.20 Calculus of gallbladder without cholecystitis without obstruction (principal); K57.30 Diverticulosis of large intestine without perforation or abscess without bleeding; N32.89 Other specified disorders of bladder; R31.0 Gross hematuria
CPT/HCPCS: 82565; 84520; 74178; 36415; 74400; Q9967